=== PATIENT | female | born 1955 | race African-American/Black ===

== ENCOUNTER → 2018-04-15 | Outpatient (CLI) | payer OTHER | END | disposition home or self-care (01) | LOC: PMGWOUND 10:11 | DX: L03.115 Cellulitis of right lower limb (principal); I10 Essential (primary) hypertension; E11.9 Type 2 diabetes mellitus without complications; K21.9 Gastro-esophageal reflux disease without esophagitis; F20.9 Schizophrenia, unspecified; J45.909 Unspecified asthma, uncomplicated; Z90.710 Acquired absence of both cervix and uterus | CPT/HCPCS: 99214 ==

== ENCOUNTER → 2018-04-24 | Outpatient (CLI) | payer OTHER | END | disposition home or self-care (01) | LOC: PMGWOUND 11:00 | DX: L03.115 Cellulitis of right lower limb (principal); I10 Essential (primary) hypertension; E11.9 Type 2 diabetes mellitus without complications; M79.661 Pain in right lower leg; K21.9 Gastro-esophageal reflux disease without esophagitis; F20.9 Schizophrenia, unspecified; J45.909 Unspecified asthma, uncomplicated; Z90.710 Acquired absence of both cervix and uterus | CPT/HCPCS: 93971; 99214 ==

== ENCOUNTER → 2018-05-01 | Outpatient (CLI) | payer OTHER | END | disposition home or self-care (01) | LOC: PMGWOUND 11:00 | DX: L03.115 Cellulitis of right lower limb (principal); I10 Essential (primary) hypertension; K21.9 Gastro-esophageal reflux disease without esophagitis; E11.9 Type 2 diabetes mellitus without complications; J45.909 Unspecified asthma, uncomplicated; F20.9 Schizophrenia, unspecified; Z90.710 Acquired absence of both cervix and uterus | CPT/HCPCS: 99213 ==

== ENCOUNTER → 2019-01-11 | Outpatient (CLI) | payer OTHER ==
[2015-09-27 13:11] VITALS: BP 178/91
[~2019-01-11] MED LIST: ALBU2.5V8 INH; METF500T16 PO; QUET200T7 PO; QUET300T7 PO; SIMV40TA3 PO; VERA240C2 PO
--- NOTE | 2019-01-11 08:54 | KCIC ---
COMPLETE ABDOMINAL ULTRASOUND Clinical History: Bloating. Cholecystectomy 1999. Comparison: None. Technique: Sonographic examination of the abdomen was performed and multiple grayscale and color Doppler static images were obtained. Findings: Exam is technically limited due to overlying bowel gas. The pancreas and abdominal aorta are obscured. The IVC and spleen are not well visualized. Most of the liver is visualized and is increased in echogenicity. The liver measures 19.1 cm. Ultrasound is not sensitive for detecting solid liver lesions. Portal flow is hepatopetal. The common bile duct is normal in caliber, measuring 5 mm in diameter. The gallbladder is surgically absent. The right kidney is normal in echotexture and measures 10.6 cm. The left kidney is normal in echotexture and measures 10.2 cm. Corticomedullary differentiation is preserved. There is no hydronephrosis. The spleen is not enlarged, measuring 10.1 cm. IMPRESSION: 1. Hepatomegaly. Fatty infiltration of the liver. 2. Study is limited due to overlying bowel gas. Electronically signed by: Jesús Panchal MD (01/11/2019 8:51 AM) [id number]
== END | disposition home or self-care (01) ==
LOC: KCIC US 07:33
PROVIDERS: ATTEND Family Medicine
DX: K76.0 Fatty (change of) liver, not elsewhere classified (principal); R14.0 Abdominal distension (gaseous); Z90.49 Acquired absence of other specified parts of digestive tract
CPT/HCPCS: 76700